=== PATIENT | male | born 1975 | race Caucasian/White ===

== ENCOUNTER 2024-01-14 18:49 | Emergency (ER) | payer BC, SELFPAY ==
[2024-01-14 19:00] VITALS: BP 166/107
[2024-01-14 19:18] LABS: Urine Albumin Negative (Neg - Trace); Urine Bilirubin Negative (Negative); Urine Character Clear (Clear); Urine Color Straw; Urine Glucose Negative (Negative); Urine Ketone Negative (Negative); Urine Leukocyte Negative (Negative); Urine Nitrite Negative (Negative); Urine Occult Blood Negative (Negative); Urine Specific Gravity 1.015 (<1.030); Urine Urobilinogen Negative (Neg - 1+)
--- NOTE | 2024-01-14 19:36 | ED.GENMED ---
History of Present Illness
General
Chief Complaint: Urinary Symptoms
Source: patient
Exam Limitations: none
Time Seen by Provider: 01/14/24 19:30
History of Present Illness
History of Present Illness:
See MDM
Past History
Past History
ED Past Medical History: Other (BPH)
ED Past Surgical History: None
Phy Exam
Physical Exam
Physical Exam:
See MDM
Course
Orders/Labs/Results
Orders:
Orders
01/14/24 19:06
Urinalysis Reflex To Culture Urgent
Date Specimen was Collected: 01/14/24
Time Specimen was Collected: 19:05
01/14/24 19:35
Palacios Placement- Treatment ONCE
Reason for insertion: Acute Retention
Vital Signs
Initial and Last Documented VS:
Initial Vital Signs
Temp Pulse Resp BP Pulse Ox
98 F 86 18 166/107 97
01/14/24 19:00 01/14/24 19:00 01/14/24 19:00 01/14/24 19:00 01/14/24 19:00
Last Documented Vital Signs
Temp Pulse Resp BP Pulse Ox
98 F 86 18 166/107 97
01/14/24 19:00 01/14/24 19:00 01/14/24 19:00 01/14/24 19:00 01/14/24 19:00
MDM/Problems Addressed
Differential Diagnosis Includes:
HPI and MDM Narrative:
48-year-old male presenting with urinary retention for the past several hours. Patient is already aware that he has BPH. He follows with urology at [place] and is already on double dose of Flomax. They have discussed TURP in the past but holding
off because he is so young. Patient states he has been dribbling with urination and has a constant urge to urinate. Patient was able to give a urine specimen but the postvoid residual was greater than 500
Went into the room, he is comfortable. He does have palpable bladder. He is pacing around the room. I did discuss a urinary catheter and he states that the conversation with his urologist earlier today suggested that he would require a catheter.
He is supposed to call his urologist first thing tomorrow morning at 8 AM
Physical exam
General: Uncomfortable, pacing around the room
HEENT: protecting airway
Neck: appears supple
CV: No evidence of cyanosis
Resp: No accessory muscle use
Abd: Non-distended. Palpable bladder
Extremities: No deformities
Neuro: alert
Psych: Normal affect
Skin: Intact
Problems Addressed including Acute and Chronic Conditions affecting care:
1. Acute urinary retention
Acuity: acute
Prognosis: unstable
Details: Appears to be in the setting of BPH. This is already known problem for him. Patient gave verbal consent for Palacios catheter and will call his urologist first thing tomorrow morning as he and the urologist already discussed
Differential Diagnosis (but not limited to): UTI, BPH
Testing considered: Creatinine testing but symptoms appear to have started only a few hours ago
Drug therapy (if applicable): OTC meds, please see d/c instruction regarding Rx drugs
Amount and/or Complexity of Data Reviewed
Clinical info obtained from: Patient
External data reviewed: N/A
Labs I independently reviewed (but not limited to): Urinalysis negative for infection
Radiology: N/A
Pulse Ox: not hypoxic
EKG independently reviewed: N/A
Doughnut Icer Machine: N/A
Critical Care: N/A
Risk of Complication:
Social Determinants of health: Good social support
Discussed with other providers: N/A
Escalation of Care includes Admit/Obs: After being observed in the Emergency Department, pt stable for discharge.
Occasional wrong word or 'sound a like' substitutions may have occurred due to the inherent limitations of voice recognition software. Read the chart carefully and recognize, using context, where substitutions have occurred.
*Critical Care Note
Total Time (30-74mins, 75-104mins- exclusive of procedures): Not Applicable
ED Attending Note
-
Portions of this chart may have been created with voice recognition software.� Occasional wrong word or��sound alike� substitutions may have occurred due to the inherent limitations of voice recognition software.
Discharge Plan
Departure
Patient Disposition: Home (Routine Discharge)
Date of Disposition: 01/14/24
Time of Disposition: 19:37
Patient with high blood pressure during this ER visit?: Yes
Discharge Problem:
Acute urinary retention
Instructions: How to Care for Your Palacios Catheter, BLOOD PRESSURE
Activity Restrictions/Additional Instructions:
As it was discussed with your urologist, please call him tomorrow morning. Please return for worsening symptoms, fevers or if you notice that the Palacios is no longer draining.
Interventions
Interventions:
*Risk Screen - Suicide Last Done: 01/14/24 18:52
*General Assessment Last Done: 01/14/24 19:00
*Neglect/Abuse Screening Last Done: 01/14/24 19:00
ED-Male Genitourinary Assessment Last Done: 01/14/24 19:30
Discharge Date and Time
Print Language: SPANISH
[2024-01-14] MEDS: LIDOCAINE URO-JET 2% 1 SYRINGE TOPICAL (20:00)
== END 2024-01-14 20:32 | disposition home or self-care (01) ==
LOC: EMR 18:49
PROVIDERS: Emergency Medicine; EMERGENCY PHYSICIAN Student in an Organized Health Care Education/Training Program; FAMILY PHYSICIAN Family Medicine
DX: R33.9 Retention of urine, unspecified (principal); N40.0 Benign prostatic hyperplasia without lower urinary tract symptoms
CPT/HCPCS: 99282; 51702; 81003